=== PATIENT | female | born 1995 | race Caucasian/White ===

== ENCOUNTER 2017-12-29 17:49 | Emergency (ER) | payer OTHER ==
--- NOTE | 2017-12-29 18:34 | EDPHY ---
H & P Stated Complaint: h/a, fever, urinary freq., pelvic cramping on menstrual cycle Time Seen by Provider: 12/29/17 18:33 HPI/ROS: HPI: This is a 22-year-old female who presents with Chief Complaint: h/a, fever, urinary freq., pelvic cramping on menstrual cycle Location: Quality: Urinary frequency and pelvic cramping Duration: Since this morning Signs and Symptoms: no fever, no nausea, no vomiting, no hematemesis, no blood in stool, no abdominal bloating, no diarrhea, no back pain, no dysuria, no vaginal discharge, no indigestion, no chest pain, no shortness of breath, no sore throat, no cough, no ear pain Timing: Acute, constant Severity: Moderate to severe Context: Patient reports that she woke up this morning just not feeling well, went for of run and continued to feel fatigued. Then when she arrived home took her temperature and was 103 F orally. She then developed some pelvic cramping and generalized headache. She went to the urgent care as she is concerned she may have a urinary tract infection who sent her to the emergency room for further evaluation. Patient has an IUD in place. Had sexual intercourse with her boyfriend over the weekend. No concern for STD per patient. She is on menses day 3 of 7. Patient was suppose to receive her influenza vaccine at work yesterday but did not. PCP is at [facility]. Modifying Factors: Tylenol Comment: ROS: A comprehensive 10 system review of systems is otherwise negative aside from elements mentioned in the history of present illness. MEDICAL/SURGICAL/SOCIAL HISTORY: Medical history: Generally healthy. Does not take any regular medications. Surgical history: Denies Social history: Never smoked. Family history noncontributory. CONSTITUTIONAL: Nontoxic-appearing adult white female, awake and alert, no obvious distress HEENT: Atraumatic and normocephalic, PERRL, EOMI. Nares patent; no rhinorrhea; no nasal mucosal edema. Tympanic membranes clear. Oropharynx clear, no exudate and moist pink mucosa. Airway patent. No lymphadenopathy. No meningismus. Cardiovascular: Normal S1/S2, regular rate, regular rhythm, without murmur rub or gallop. PULMONARY/CHEST: Symmetrical and nontender. Clear to auscultation bilaterally. Good air movement. No accessory muscle usage. ABDOMEN: Soft, nondistended, mild suprapubic tenderness, no rebound, no guarding, no peritoneal signs, no masses or organomegaly. No CVAT. EXTREMITIES: 2/2 pulses, strength 5/5, no deformities, no clubbing, no cyanosis or edema. NEUROLOGICAL: no focal neuro deficits. GCS 15. SKIN: Warm and dry, no erythema. no rash. Good capillary refill. Source: Patient Exam Limitations: No limitations - Personal History LMP (Females 10-55): IUD In Place - Medical/Surgical History Hx Asthma: No Hx Chronic Respiratory Disease: No Hx Diabetes: No Hx Cardiac Disease: No Hx Renal Disease: No Hx Cirrhosis: No Hx Alcoholism: No Hx HIV/AIDS: No Hx Splenectomy or Spleen Trauma: No Other PMH: denies - Social History Smoking Status: Never smoked Constitutional: Initial Vital Signs Temperature (C) 38.0 C 12/29/17 17:53 Heart Rate 97 12/29/17 17:53 Respiratory Rate 16 12/29/17 17:53 Blood Pressure 105/70 12/29/17 17:53 O2 Sat (%) 98 12/29/17 17:53 O2 Delivery Mode Room Air Allergies/Adverse Reactions: No Known Allergies Allergy (Unverified 12/29/17 17:51) Home Medications: Medication Instructions Recorded NK [No Known Home Meds] 12/29/17 Medical Decision Making - Diagnostics Imaging Results: Imaging Impressions Pelvic/Renal Ultrasound 12/29/17 18:40 Impression: 1. Well-positioned intrauterine device. Thin endometrial lining. No leiomyoma. 2. Normal ovaries. 3. No adnexal mass. Findings discussed with Emergency Department physician veterinary technician assistant, Eugenia Rico, on 12/29/2017, 19:53. ED Course/Re-evaluation: Vital signs reviewed and stable upon arrival. No fever but received Tylenol prior to arrival. Laboratory studies, IV fluids, IV medications, pelvic ultrasound, urinalysis ordered Given 1 L normal saline, IV Toradol, IV promethazine Will evaluate for pyelonephritis, urinary tract infection, ovarian cyst. 1939: Labs reviewed. No signs of anemia/platelet dysfunction/MARCIAL/elevated LFTs /electrolyte imbalance/pancreatitis. Mild leukocytosis of 9 K with left shift noted. Urinalysis shows no aury signs of infection, 2+ blood. Influenza negative. 1951: Called by radiologist who reports that pelvic ultrasound is completely unremarkable. IUD is well position. No signs of ovarian cyst, ovarian torsion , free fluid. There is good blood flow to both ovaries. 2004: Reassessed patient reports that she feels"better." Repeat abdominal exam shows no right lower quadrant tenderness, no rebound tenderness, no periumbilical tenderness. Discussed signs and symptoms of appendicitis and to return immediately if any of these occur. Patient politely declined right lower quadrant ultrasound at this time. Patient was given a work note per her request. She was to follow up with her primary care provider at [facility] if she develops vaginal discharge for pelvic exam as patient refuses one in the ER. We discussed signs and symptoms of PID. This patient was seen under the supervision of my secondary supervising physician. I evaluated care for this patient independently. Discussed this patient with Dr. Santoyo. Differential Diagnosis: Abdominal pain in a female including but not limited to ovarian cyst, pelvic inflammatory disease, ovarian torsion, urinary tract infection, and appendicitis. - Data Points Laboratory Results: Laboratory Results 12/29/17 18:50 12/29/17 18:50 12/29/17 12/29/17 12/29/17 19:50 18:50 18:50 WBC RBC Hgb Hct MCV MCH MCHC RDW Plt Count MPV Neut % (Auto) Lymph % (Auto) [place] % (Auto) Eos % (Auto) Baso % (Auto) Nucleat RBC Rel Count Absolute Neuts (auto) Absolute Lymphs (auto) Absolute Monos (auto) Absolute Eos (auto) Absolute Basos (auto) Absolute Nucleated RBC Immature Gran % Immature Gran # RBC/WBC/PLT Morphology Platelet Estimate Sodium Potassium Chloride Carbon Dioxide Anion Gap BUN Creatinine Estimated GFR Glucose Calcium Total Bilirubin Conjugated Bilirubin Unconjugated Bilirubin AST ALT Alkaline Phosphatase Total Protein Albumin Lipase Beta HCG, Qual NEGATIVE Urine Color PALE YELLOW Urine Appearance CLEAR Urine pH 6.0 (5.0-7.5) Ur Specific [place] 1.003 (1.002-1.030) Urine Protein NEGATIVE (NEGATIVE) Urine Ketones NEGATIVE (NEGATIVE) Urine Blood 2+ H (NEGATIVE) Urine Nitrate NEGATIVE (NEGATIVE) Urine Bilirubin NEGATIVE (NEGATIVE) Urine Urobilinogen NEGATIVE EU EU (0.2-1.0) Ur Leukocyte Esterase NEGATIVE (NEGATIVE) Urine RBC NONE SEEN /hpf /hpf (0-3) Urine WBC 1-3 /hpf /hpf (0-3) Ur Epithelial Cells TRACE /lpf /lpf (NONE-1+) Urine Mucus TRACE /lpf /lpf (NONE-1+) Urine Glucose NEGATIVE (NEGATIVE) Nasal Influenza A PCR NEGATIVE FOR FLU A (NEGATIVE) Nasal Influenza B PCR NEGATIVE FOR FLU B (NEGATIVE) 12/29/17 12/29/17 18:50 18:50 WBC 9.53 10^3/uL H 10^3/uL (3.80-9.50) RBC 3.87 10^6/uL L 10^6/uL (4.18-5.33) Hgb 12.8 g/dL g/dL (12.6-16.3) Hct 37.0 % L % (38.0-47.0) MCV 95.6 fL fL (81.5-99.8) MCH 33.1 pg pg (27.9-34.1) MCHC 34.6 g/dL g/dL (32.4-36.7) RDW 11.5 % % (11.5-15.2) Plt Count 240 10^3/uL 10^3/uL (150-400) MPV 10.1 fL fL (8.7-11.7) Neut % (Auto) 88.7 % H % (39.3-74.2) Lymph % (Auto) 3.6 % L % (15.0-45.0) [place] % (Auto) 7.1 % % (4.5-13.0) Eos % (Auto) 0.0 % L % (0.6-7.6) Baso % (Auto) 0.2 % L % (0.3-1.7) Nucleat RBC Rel Count 0.0 % % (0.0-0.2) Absolute Neuts (auto) 8.45 10^3/uL H 10^3/uL (1.70-6.50) Absolute Lymphs (auto) 0.34 10^3/uL L 10^3/uL (1.00-3.00) Absolute Monos (auto) 0.68 10^3/uL 10^3/uL (0.30-0.80) Absolute Eos (auto) 0.00 10^3/uL L 10^3/uL (0.03-0.40) Absolute Basos (auto) 0.02 10^3/uL 10^3/uL (0.02-0.10) Absolute Nucleated RBC 0.00 10^3/uL 10^3/uL (0-0.01) Immature Gran % 0.4 % % (0.0-1.1) Immature Gran # 0.04 10^3/uL 10^3/uL (0.00-0.10) RBC/WBC/PLT Morphology TNP Platelet Estimate TNP Sodium 134 mEq/L L mEq/L (135-145) Potassium 3.6 mEq/L mEq/L (3.3-5.0) Chloride 103 mEq/L mEq/L (97-110) Carbon Dioxide 23 mEq/l mEq/l (22-31) Anion Gap 8 mEq/L mEq/L (6-14) BUN 6 mg/dL L mg/dL (7-23) Creatinine 0.7 mg/dL mg/dL (0.6-1.0) Estimated GFR > 60 Glucose 117 mg/dL H mg/dL (70-100) Calcium 9.1 mg/dL mg/dL (8.5-10.4) Total Bilirubin 0.4 mg/dL mg/dL (0.1-1.4) Conjugated Bilirubin 0.1 mg/dL mg/dL (0.0-0.5) Unconjugated Bilirubin 0.3 mg/dL mg/dL (0.0-1.1) AST 27 IU/L IU/L (14-46) ALT 19 IU/L IU/L (9-52) Alkaline Phosphatase 47 IU/L IU/L (38-126) Total Protein 6.9 g/dL g/dL (6.3-8.2) Albumin 4.1 g/dL g/dL (3.5-5.0) Lipase 89 IU/L IU/L (23-300) Beta HCG, Qual Urine Color Urine Appearance Urine pH Ur Specific [place] Urine Protein Urine Ketones Urine Blood Urine Nitrate Urine Bilirubin Urine Urobilinogen Ur Leukocyte Esterase Urine RBC Urine WBC Ur Epithelial Cells Urine Mucus Urine Glucose Nasal Influenza A PCR Nasal Influenza B PCR Medications Given: Discontinued Medications Sodium Chloride (Ns) 1,000 mls @ 0 mls/hr IV EDNOW ONE; Wide Open PRN Reason: Protocol Stop: 12/29/17 18:40 Last Admin: 12/29/17 18:53 Dose: 1,000 mls Sodium Chloride (Ns) 1,000 mls @ 0 mls/hr IV EDNOW ONE; Wide Open PRN Reason: Protocol Stop: 12/29/17 18:40 Last Admin: 12/29/17 18:52 Dose: 1,000 mls Ketorolac Tromethamine (Toradol) 30 mg IVP EDNOW ONE Stop: 12/29/17 18:40 Last Admin: 12/29/17 18:53 Dose: 30 mg Promethazine HCl (Phenergan) 12.5 mg IVP EDNOW ONE Stop: 12/29/17 18:40 Last Admin: 12/29/17 18:55 Dose: 12.5 mg Departure - Departure Disposition: Home, Routine, Self-Care Clinical Impression: Pelvic cramping, Dysmenorrhea Condition: Good Instructions: Dysmenorrhea (ED) Additional Instructions: Consume a minimum of 8-10 glasses of water or electrolyte fluid replacement drinks that include Gatorade, Powerade, Pedialyte. Take Tylenol 650 mg every 4 hours and/or Ibuprofen 600 mg every 8 hours with food as needed for pain/fever. Rest as much as possible until you are feeling better. If abdominal pain continues to worsen especially in the right lower quadrant return to the emergency room immediately. Follow-up with primary care provider in the next 3-4 days if symptoms persist or you develop vaginal discharge. Referrals: Maria Alejandra Farmer MD [Primary Care Provider] - As per Instructions Stand Alone Forms: Work Excuse
[2017-12-29] MEDS ORDERED: PROMETHAZINE HCL 25 MG/ML INJ IVP ONE (18:39)
[2017-12-29] MEDS ORDERED: KETOROLAC 30 MG/1 ML SDV IVP ONE (18:39)
[2017-12-29] MEDS ORDERED: NS 1,000 ML IV ONE ×2 (18:39)
[2017-12-29 19:06] LABS: PLATELET COUNT 240 10^3/uL (150-400)
[2017-12-29 20:21] VITALS: BP 116/52
== END 2017-12-29 20:21 | disposition home or self-care (01) ==
DX: R10.2 Pelvic and perineal pain (principal); N94.6 Dysmenorrhea, unspecified; E86.9 Volume depletion, unspecified; R51 Headache; R50.9 Fever, unspecified
CPT/HCPCS: 96374; J1885; J2550

== ENCOUNTER → 2018-03-30 | Outpatient (CLI) | payer OTHER | LOC: FIMAGING 08:56 | DX: N63.21 Unspecified lump in the left breast, upper outer quadrant (principal) ==

== ENCOUNTER → 2018-04-06 | Outpatient (CLI) | payer OTHER ==
[~2018-04-06] MED LIST: BUPIVACAINE 0.5% 30 ML SDV ONE; LIDOCAINE 1% 300 MG/30 ML SDV ONE
== END ==
LOC: FIMAGING 07:21
PROC: 0HBU3ZX Excision of Left Breast, Percutaneous Approach, Diagnostic (ICD-10-PCS; principal; 2018-04-06)
DX: N63.20 Unspecified lump in the left breast, unspecified quadrant (principal); D24.2 Benign neoplasm of left breast

== ENCOUNTER → 2018-06-08 | Outpatient (CLI) | payer OTHER | LOC: BMCIMAGING 17:36 | PROVIDERS: ATTEND Family Medicine | DX: M25.531 Pain in right wrist (principal) ==